=== PATIENT | female | born 1975 | race Caucasian/White ===

== ENCOUNTER → 2022-07-30 14:56 | Outpatient (CLI) | payer OTHER, SELFPAY ==
--- NOTE | ~2022-07-30 | XR_ITS ---
EXAMINATION: XR ankle RT min 3V INDICATION: Right ankle injury and pain TECHNIQUE: Four views of the right ankle are obtained. COMPARISON: None available FINDINGS: There is heterotopic ossification distal to the lateral malleolus. Adjacent soft tissue swe lling is present. The ankle mortise is intact. IMPRESSION: 1. Findings consistent with avulsion fracture of the lateral malleolus. Reviewed, dictated and finalized at location A.
== END ==
PROVIDERS: PCP Nurse Practitioner; Visit Provider Nurse Practitioner
DX: S99.911A Unspecified injury of right ankle, initial encounter (principal); R93.7 Abnormal findings on diagnostic imaging of other parts of musculoskeletal system
CPT/HCPCS: 73610

== ENCOUNTER 2024-03-27 11:31 | Outpatient (CLI) | payer OTHER, SELFPAY ==
--- NOTE | ~2024-03-27 | MR_ITS ---
MRI of the cervical spine Clinical History: Neck pain Technique: Axial T2-weighted and gradient images, and sagittal T1-weighted, T2-weighted, and STIR regina ges were acquired. Findings: There is mild reversal normal cervical lordosis. No fracture or subluxation seen. No suspic ious bone marrow signal abnormality seen. At C2-C3, there is no disc bulge or herniation. No spinal canal stenosis or cord compression. There i s bilateral facet arthropathy, right worse than left, without definite neural foraminal compromise. At C3-C4, there is minimal disc osteophyte complex, with mild canal stenosis but no frandy cord compre ssion. Possible minimal neural foraminal narrowing bilaterally, with mild facet arthropathy, right wo rse than left. At C4-C5, there is minimal disc osteophyte complex. There is minimal canal stenosis without frandy cor d compression. Probable mild bilateral neural foraminal narrowing and mild bilateral facet arthropath y. At C5-C6, there is disc osteophyte complex with mild canal stenosis but no frandy cord compression. Pr obable mild bilateral neural foraminal narrowing, with facet arthropathy bilaterally, left worse than right. At C6-C7, there is minimal disc osteophyte complex. There is mild canal stenosis without frandy cord c ompression. No definite neural foraminal narrowing. No abnormal signal seen in the spinal cord. Paravertebral soft tissues are unremarkable. Impression: Moderate degenerative spondylosis, as above. Reviewed, dictated and finalized at [facility]. Impression: Moderate degenerative spondylosis, as above.
== END 2024-03-27 11:32 ==
PROVIDERS: PCP Nurse Practitioner
DX: M47.812 Spondylosis without myelopathy or radiculopathy, cervical region (principal); M48.02 Spinal stenosis, cervical region; M50.30 Other cervical disc degeneration, unspecified cervical region; M43.12 Spondylolisthesis, cervical region
CPT/HCPCS: 72141

== ENCOUNTER 2025-05-30 00:29 | Day surgery (SDC) | payer OTHER, SELFPAY ==
[2025-05-16 11:54] VITALS: BMI 21.7
--- OUTSIDE RECORDS SUMMARY | 2025-05-30 00:32 | XMS_ITS | Encounter Summary ---
Author Organization [facility] Address [address] [place] [id number] Care Team Providers Care Superintendent Mechanical Name Role Phone Archana Enciso NP Primary Care Provider [phone] Encounter Details Date Type Department Care Team (Late st Contact Info) Description 08/08/2021 [employer] Message Enc [facility] Family Medicine - [place] [address] [place] [address] Archana Enciso NP [address] [place] [address] Test Results Social History Tobacco Use Types Packs/Day Years Used Date Smoking Tobacco: Never Smokeless Tobacco: Never Alcohol Use Standard Drinks/Week Comments Yes 0 (1 standard drink = 0.6 oz pur e alcohol) PHQ-2 Answer Date Recorded PHQ-2 Score - If the patient scores above 3, please move on to questions 3-9 2 03/16/2021 Comments No Sex and Gender Information Value Date Recorded Sex Assigned at Not on file Legal Sex Female 6:08 AM CDT Gender Identity Not on file Sexual Orientation Not on file documented as of this encounter Plan of Treatment Not on file documented as of this encounter Visit Diagnoses Not on filedocumented in this encounter Additional Health Concerns Assessment Noted Time PHQ-9 Depression Total Score: 13 03/16/ 021 8:29 AM CDT documented as of this encounter Care Teams Superintendent Mechanical Relationship Specialty Start Date End Date Archana Enciso NP [address] [place] [address] PCP - General NURSE PRACTITIONER 03/13/21 documented as of this encounter
--- OUTSIDE RECORDS SUMMARY | 2025-05-30 00:32 | XMS_ITS | Clinical Summary ---
Author Organization [facility] Address [address] [place]: Epic Prelude ADT SHAVONNE OLIVO [address] Care Team Providers Care Produce Specialist Name Role Phone Unavailable Primary Care Provider Unavailabl e Immunizations Immunization Administration Dates Next Due (COMIRNATY)(12 YR UP) COVID- 19 VACCINE, MRNA, SPIKE PROTEIN, LNP, YUNI(PF) 30 MCG/0.3 ML IM SUSP 07/18/2024 INFLUENZA VACCINE QUADRIVALENT 6 MOS UP PF IM ,08/03/2022 INFLUENZA VACCINE TRIVALENT SPLIT VIRUS, (6 MOS UP), 0.5ML (PF), IM 07/17/2024 Social History Tobacco Use Types Packs/Day Years Used Date Smoking Tobacco: Never Assessed Comments Unknown Sex and Gender Information Value Date Recorded Sex Assigned at Not on file Legal Sex Female 3:27 PM CDT Gender Identity Not on file Sexual Orientation Not on file Plan of Treatment Health Maintenance Due Date Last Done Comments DTAP/TDAP/TD VACCINES (1 - Tdap) 1996 HEPATITIS B VACCINES (1 of 3 - 19+ 3-dose series) 1996 HPV/Cotest (21-29) 1998 CERVICAL CANCER SCREENING 2007 HPV/Cotest (30-65) 2007 PAP SMEAR 2007 BREAST CANCER SCREENING 2017 COLORECTAL SCREENING 2022 Colorectal Cancer Screening 2022 FIT-DNA Q 3 years 2022 FIT/FOBT Q 1 year 2022 Flex Sig/CT Colonography Q 5 years 2022 INFLUENZA VACCINE (#1) 2025 4, 07/26/2023, 08/03/2022 COVID-19 Vaccine Completed 07/18/2024
--- OUTSIDE RECORDS SUMMARY | 2025-05-30 00:32 | XMS_ITS | Clinical Summary ---
Author Organization [facility] Address [address] [place] [id number] Care Team Providers Care Automobile Relocation Engineer Name Role Phone No, Physician Primary Care Provider [phone] Allergies No known active allergies Medications drospirenone-e. estradioL-lm.FA 3-0.02-0.451 mg (24) (4) tablet Take 1 tablet by mouth daily 11/24/2023 Active loratadine (CLARITIN) 10 mg tablet Take 1 tablet (10 mg total) by mouth daily Active tiZANidine (ZANAFLEX) 4 mg tabletIndicatio ns:Chronic neck pain Take 1 tablet (4 mg total) by mouth nightly as needed for muscle spasms 30 tablet 12/17/[address] (VOLTAREN) 75 mg EC tabletIndicatio ns:Chronic neck pain Take 1 tablet (75 mg total) by mouth 2 (two) times a day as needed for pain 60 tablet 12/17/2023 Active Active Problems No known active problems Surgical History Surgery Date Site/Laterality Comments COMBINED REDUCTION MAMMAPLASTY W/ ABDOMINOPLASTY ORAL SURGERY Medical History Medical History Date Comments Spondylolisthesis, cervical region DDD (degenerative disc disease), cervical Arthropathy of cervical facet joint Family History Medical History Relation Name Comments Cancer Father Arthritis Mother Relation Name Status Comments Father Mother Social History Tobacco Use Types Packs/Day Years Used Date Smoking Tobacco: Never Smokeless Tobacco: Never Tobacco Cessation:Counseling Given: Not Answered AUDIT-C Answer Date Recorded Q1: How often do you have a drink containing alc ohol? 2-3 times a week 12/17/2023 Q2: How many drinks containi ng alcohol do you have on a typical day when you are drinking? 1 or 2 12/17/2023 Q3: How often do you have si x or more drinks on one occasion? 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 Not on file Not on file Obstetrics History Last Filed Vital Signs Vital Sign Reading Time Taken Comments Blood Pressure - - Pulse - - Temperature - - Respiratory Rate - - Oxygen Saturation - - Inhaled Oxygen Concentration - - Weight 70.3 kg (155 lb) 03/17/2024 8:57 AM CDT Height 165.1 cm (5' 5) 03/17/2024 8:57 AM CDT Body Mass Index 25.79 03/17/2024 8:57 AM CDT Plan of Treatment Health Maintenance Due Date Last Done Comments Cervical Cancer Screening 1977 Colon Cancer Screening-Colonoscopy 1977 Depression Screening 1977 Hepatitis C Screening 1977 Hepatitis B Screening 1995 Regular Well Visit/Exam 18-64 1995 DTaP/Tdap/Td Vaccine (3 - Td or Tdap) 09/03/2022 09/03/2012, 08/20/2012 Covid-19 Vaccine ( season) 2024 08/01/2023, 09/16/2021, 02/04/2021, Additional history exists Breast Cancer Screening-Mammogram 01/21/2025 01/22/2024, 01/22/2024, 09/30/2022, Additional history exists Influenza Vaccine (#1) 2025 , 08/03/2022, 07/22/2021, Additional history exists Pneumococcal vaccine <65 Aged Out No longer eligible based on patient's age to complete this topic Insurance REPLACED BY [facility] Care Teams Automobile Relocation Engineer Relationship Specialty Start Date End Date No, Physician PCP - General 02/11/20
--- OUTSIDE RECORDS SUMMARY | 2025-05-30 00:32 | XMS_ITS | Clinical Summary ---
Author Organization [facility] Address [address] [place] [address] Care Team Providers Care Finisher Polisher Name Role Phone Archana Enciso NP Primary Care Provider [phone] Allergies No known active allergies Medications loratadine (CLARITIN) 10 MG tablet Take 10 mg by mouth daily. Active Drospiren-Eth Estrad-Levomefol 3-0.02-0.451 MG Tab Take by mouth daily. Active acyclovir (ZOVIRAX) 400 MG tablet Take 400 mg by mouth 5 (five) times daily. 07/23/2022 Active OZEMPIC, 1 MG/DOSE, 4 MG/3ML Solution Pen-injector 06/06/2022 Active Active Problems Problem Noted Date Diagnosed Date Elevated C-reactive protein (CRP) 08/29/2021 Elevated serum creatinine 08/29/2021 Overweight (BMI 25.0-29.9) 03/16/2021 Resolved Problems Problem Noted Date Diagnosed Date Resolved Date Hypertension, unspecified type 03/16/2021 08/29/2021 Immunizations Immunization Administration Dates Next Due Influenza Adult (Generic) 07/22/2021,,08/09/2017,2011 MODERNA COVID-19 (BAND [employer]INGER JUANCHO KATIE), MRNA, LNP-S, PF, 50 MCG/ 0.25 ML DOSE 09/16/2021 Tdap (Generic) 08/20/2012 Family History Medical History Relation Comments Lung Cancer Father Lung Cancer Maternal Grandfather Bronchitis Mother Hypertension Mother Relation Status Comments Father Maternal Grandfather Mother Social History Tobacco Use Types Packs/Day Years Used Date Smoking Tobacco: Never Smokeless Tobacco: Never Tobacco Cessation:Counseling Given: No Comments:na Alcohol Use Standard Drinks/Week Comments Yes 0 (1 standard drink = 0.6 oz pur e alcohol) PHQ-2 Answer Date Recorded PHQ-2 Score - If the patient scores above 3, please move on to questions 3-9 0 08/05/2022 Comments No Sex and Gender Information Value Date Recorded Sex Assigned at Not on file Legal Sex Female 6:08 AM CDT Gender Identity Not on file Sexual Orientation Not on file Last Filed Vital Signs Vital Sign Reading Time Taken Comments Blood Pressure 101/73 08/05/2022 11:04 AM CDT Pulse 93 08/05/2022 11:04 AM CDT Temperature 36.8 C (98.3 F) 07/30/2022 2:27 PM CDT Respiratory Rate 18 07/30/2022 2:27 PM CDT Oxygen Saturation 99% 07/30/2022 2:27 PM CDT Inhaled Oxygen Concentration - - Weight 57.2 kg (126 lb) 08/05/2022 11:04 AM CDT Height 165.1 cm (5' 5) 08/05/2022 11:04 AM CDT Body Mass Index 20.97 08/05/2022 11:04 AM CDT Plan of Treatment Health Maintenance Due Date Last Done Comments Cervical Cancer Screening Pap Smear (Age 30 to 64) Every 3 Years 1977 Colorectal Cancer Screening Colonoscopy (10 Years) 1977 Hepatitis B Vaccines (1 of 3 - 19+ 3-dose series) 1996 Cervical Cancer Screening Pap with HPV Testing (Age 30 to 64) Every 5 Years 2007 Cervical Cancer Screening with HPV 2007 Annual Physical 03/16/2022 03/16/2021 DTaP, Tdap and Td Vaccines (3 - Td or Tdap) 09/03/2022 09/03/2012, 08/20/2012 COVID-19 Vaccine ( season) 2024 08/01/2023, 09/16/2021, 02/04/2021, Additional history exists Mammogram Screening 09/30/2024 09/30/2022 PHQ-2 (Physician [place]) 10/20/2024 Hepatitis C Completed 03/24/2021 Meningococcal B Vaccine Aged Out No l onger eligible based on patient's age to complete this topic Meningococcal Vaccine Aged Out No danielle arlette eligible based on patient's age to complete this topic Pneumococcal Vaccine: Pediatrics (0 to 5 Years) and At-Risk Patients (6 to 49 Years) Aged Out No longer eligible based on patient's age to complete this topic RSV Immunizations Under 20 Months Aged Out No longer eligible based on patient's age to complete this topic Procedures Procedure Name Priority Date/Time Associated Diagnosis Comments MAMMOGRAM GENERIC (SCAN ORDER) Routine 09/30/2022 HEPATITIS C ANTIBODY Routine 03/24/2021 8:59 AM CDT Need for hepatitis C screening test from Last 3 Months or Most Recently Relevant to Health Maintenance Results * MAMMOGRAM (09/30/2022) Anatomical Region Laterality Modality Other us [facility] Scanned SCANNING Final Resu lt * HEPATITIS C ANTIBODY (03/24/2021 8:59 AM CDT) HEPATITIS C AB <0.1 0.0 - 0.9 s/co ratio [facility] 1 Comment: Negative: < 0.8 Indeterminate: 0.8 - 0.9 Positive: > 0.9 The CDC recommends that a positive HCV antibody result be followed up with a HCV Nucleic Acid Amplification test (501686). 03/24/2021 8:59 AM CDT 03/24/2021 Narrative [facility] - 03/25/2021 2:06 PM CDT Performed at: 01 - [facility] [address] [id number] Classroom Teacher: Oumar Enciso PhD, Phone: [phone] us Archana Enciso [employer] Final Res ult [facility] [address] [place] [address] [facility] 1 from Last 3 Months or Most Recently Relevant to Health Maintenance Insurance [address] [place] [id number] [employer] Care Teams Finisher Polisher Relationship Specialty Start Date End Date Archana Enciso NP [address] [place] [address] PCP - General NURSE PRACTITIONER 03/13/21
[2025-05-30 09:57] VITALS: BP 125/97; PULSE 108; RESP 18; TEMP 36.3; O2SAT 100; BMI 21.2
[2025-05-30] MEDS: LACTATED RINGERS 1,000 ML 150 ML IV CONT (10:07)
[2025-05-30 10:10] LABS: BEDSIDEPREGUCG Negative (Negative)
--- NOTE | 2025-05-30 10:20 | WPDANESEPPF ---
Anes - Initial Pre Proc Eval Procedure: Operation Date: 05/30/25 10:30 Proposed Procedures p Screening Colonoscopy - Lazarus Day DO Date/Time: 05/30/25 10:20 Surgeon: Lazarus Day DO Pre Op Diagnosis: Neoplasm screening Patient Data Age: 49 Gender: F Height: 1.65 m Weight: 57.7 kg Last Vital Signs Temp 36.3 C L 05/30/25 09:57 Pulse 108 H 05/30/25 09:57 Resp 18 05/30/25 09:57 BP 125/97 H 05/30/25 09:57 Pulse Ox 100 05/30/25 09:57 O2 Del Method Room Air 05/30/25 09:57 Allergies Allergy/AdvReac Type Severity Reaction Status Date / Time No Known Allergies Allergy Verified 05/30/25 09:56 Home Medications ?Medication ?Instructions ?Recorded ?Confirmed ?Type drospiren-e.estrad-l.mefol 3 1 tablet PO DAILY #112 tabs 03/31/25 05/30/25 Rx mg-0.02 mg-0.451 mg(24)/0.451 mg(4)tablet semaglutide (weight loss) 0.5 0.5 mg subcut WEEKLY weightloss 05/16/25 05/16/25 History mg/0.5 mL subcutaneous pen injector Laboratory Tests 05/30/25 09:57 POC Urine HCG, Qual Negative (Negative) Patient hx anesthesia problems: none Family hx anesthesia problems: none Results Review: All pre-operative results and documents have been reviewed as part of the pre-operative evaluation. [facility] Past Medical History Medical History Seizures as child Allergies Surgical History Surgical History H/O bilateral breast reduction surgery [place] teeth removed Family History Family History (Updated 03/29/25 @ 14:40 by Marisa Berrios CMA) Mother Diabetes mellitus Hypertension Grandparent Hypertension Lung cancer Sibling Liver cancer Cervical cancer Father Bone cancer Lung cancer Social History Social History (Updated 03/31/25 @ 07:58 by Bethanie Farnsworth CMA) Smoking status: Never smoker Alcohol intake: current Drinks per week: 2 Alcohol use details: socially Substance use: never Substance use type: does not use Do You Feel Safe in your Home?: Yes Lack of Transportation: No Lack of Food: Never True Current Housing: I Have Housing Concerned About Future Housing: No Difficulty Paying Gas/Electric Bills: No Difficulty Paying for Meds: No Currently Unemployed: No Difficulty w/ Childcare or Family Care: No Living arrangements: with family Additional living arrangements comments: Occupation/Education: occupation Gender identity (if verbalized by the patient): Female Sexual Orientation (if Verbalized by the Patient): Straight or Heterosexual Spiritual care concerns: No Anes - Eval Final PreProcedure Day of Procedure 05/30/25 10:20 Patient weight: normal Heart: regular rate and rhythm Lungs: clear to auscultation and normal air movement Airway: Mallampati scale class II Neurological: alert and oriented Last oral intake: >/= 8 hours ASA classification: II Emergent: no Anesthetic plan: proceed Anesthesia type and monitoring: general GIVS and standard monitoring Results Review: All pre-operative results and documents have been reviewed as part of the pre-operative evaluation. Informed Consent: The patient's anesthetic plan and its attendant risks and benefits were discussed with the patient/family/POA. Questions were solicited and answers provided to the satisfaction of the patient/family/POA.
--- NOTE | 2025-05-30 11:23 | PM.IMHP ---
H&P: HPI History of Present Illness Date/Time: 05/30/25 11:23 Chief Complaint: screening for colorectal cancer Narrative: this is a 49-year-old woman who presents for colonoscopy. She denies any hematochezia or melena. She denies any changes in bowel habits. She denies family history of colon cancer. Review of Systems Review of Systems: All systems reviewed & are unremarkable except as noted in HPI and below Constitutional: Constitutional: Denies chills, Denies fever(s), Denies headache(s) and Denies weight loss Eyes: Eyes: Denies change in vision ENT: Denies dizziness, Denies headache(s), Denies neck mass and Denies throat swelling Cardiovascular: Cardiovascular: Denies chest pain, Denies lightheadedness and Denies dyspnea Respiratory: Respiratory: Denies cough, Denies dyspnea and Denies wheezing Gastrointestinal: Gastrointestinal: Denies abdominal pain, Denies change in bowel habits, Denies nausea and Denies vomiting Genitourinary: Genitourinary: Denies hematuria and Denies dysuria Musculoskeletal: Musculoskeletal: Reports as per HPI Integumentary/Breasts: Skin/Breast: Reports as per HPI Neurologic: Denies dizziness and Denies headache(s) Allergic/Immunologic: Allergic/Immunologic: Denies throat swelling and Denies wheezing PMFSH Past Medical History Medical History Seizures as child Allergies Surgical History Surgical History H/O bilateral breast reduction surgery [place] teeth removed Family History Family History (Updated 03/29/25 @ 14:40 by Marisa Berrios CMA) Mother Diabetes mellitus Hypertension Grandparent Hypertension Lung cancer Sibling Liver cancer Cervical cancer Father Bone cancer Lung cancer Social History Social History (Updated 03/31/25 @ 07:58 by Bethanie Farnsworth CMA) Smoking status: Never smoker Alcohol intake: current Drinks per week: 2 Alcohol use details: socially Substance use: never Substance use type: does not use Do You Feel Safe in your Home?: Yes Lack of Transportation: No Lack of Food: Never True Current Housing: I Have Housing Concerned About Future Housing: No Difficulty Paying Gas/Electric Bills: No Difficulty Paying for Meds: No Currently Unemployed: No Difficulty w/ Childcare or Family Care: No Living arrangements: with family Additional living arrangements comments: Occupation/Education: occupation Gender identity (if verbalized by the patient): Female Sexual Orientation (if Verbalized by the Patient): Straight or Heterosexual Spiritual care concerns: No Meds Home Medications and Allergies Home Medications ?Medication ?Instructions ?Recorded ?Confirmed ?Type drospiren-e.estrad-l.mefol 3 1 tablet PO DAILY #112 tabs 03/31/25 05/30/25 Rx mg-0.02 mg-0.451 mg(24)/0.451 mg(4)tablet semaglutide (weight loss) 0.5 0.5 mg subcut WEEKLY weightloss 05/16/25 05/16/25 History mg/0.5 mL subcutaneous pen injector Allergies Allergy/AdvReac Type Severity Reaction Status Date / Time No Known Allergies Allergy Verified 05/30/25 09:56 Vital Signs Vital Signs - 24 hr 05/30/25 09:57 Temperature 97.3 F L Pulse Rate 108 H Respiratory Rate 18 Blood Pressure 125/97 H Pulse Oximetry 100 Oxygen Delivery Room Air Exam Const: General: no acute distress and alert Orientation/consciousness: patient oriented x3 HENMT: Head: normocephalic and atraumatic Ears: hearing grossly normal bilaterally Face/Nose/Sinus: Normal nares present Mouth: Yes Normal oral and palatal mucosa present Eyes: Periorbital: periorbital findings normal Sclera: sclerae normal EOM: EOMs intact bilaterally Neck: Neck: normal visual inspection, no lymphadenopathy and trachea midline Chest: Chest palpation & inspection: normal inspection of the chest Resp: Effort & Inspection: normal respiratory effort Auscultation: clear to auscultation bilaterally Cardio: Jugular venous distension: no JVD Rate: regular rate Rhythm: regular rhythm Heart sounds: S1 normal heart sound present and S2 normal heart sound present Peripheral pulses: Peripheral pulses 2+ throughout GI: Inspection: normal to inspection GI Palp: Yes Soft to palpation, No Tenderness to palpation present (GI), No Guarding due to palpation present (GI) and No Rebound tenderness present Percussion: Yes normal to percussion Auscultation: normal bowel sounds : General: Yes no CVA tenderness Back/Spine/Pelvis: Back: no CVA tenderness Neuro: General: patient oriented x3, no focal motor deficits and CN's II-XI intact bilaterally Cognition (Neuro): normal cognition Speech: normal speech Motor exam (neuro): 5/5 motor strength present throughout Extrem: General: capillary refill normal and no clubbing, cyanosis or edema Assessment and Plan Assessment and plan (1) Colon cancer screening: Code(s): Z12.11 - Encounter for screening for malignant neoplasm of colon Status: Acute Assessment and Plan: I have recommended colonoscopy. I have discussed the procedure, risks, benefits, and alternatives. Questions were answered. Patient is agreeable to proceed.
[2025-05-30 11:48] VITALS: BP 109/70; PULSE 105; RESP 22; O2SAT 100
[2025-05-30 11:59] VITALS: BP 123/73; PULSE 94; RESP 24; O2SAT 100
[2025-05-30 12:09] VITALS: BP 116/71; PULSE 84; RESP 18; O2SAT 100
== END 2025-05-30 12:19 | disposition home or self-care (01) ==
PROVIDERS: Anesthesiology; PCP Nurse Practitioner; Visit Provider Surgery
PROC: 0DJD8ZZ Inspection of Lower Intestinal Tract, Via Natural or Artificial Opening Endoscopic (ICD-10-PCS; CPT 45378; principal; 2025-05-30 10:30)
DX: Z12.11 Encounter for screening for malignant neoplasm of colon (principal); Z79.85 Long-term (current) use of injectable non-insulin antidiabetic drugs; Z98.890 Other specified postprocedural states; Z86.69 Personal history of other diseases of the nervous system and sense organs; Z80.1 Family history of malignant neoplasm of trachea, bronchus and lung; Z80.0 Family history of malignant neoplasm of digestive organs; Z80.49 Family history of malignant neoplasm of other genital organs; Z80.8 Family history of malignant neoplasm of other organs or systems
CPT/HCPCS: 45378; J2003; J2704; J7120

== ENCOUNTER 2025-06-13 14:14 | Outpatient (CLI) | payer OTHER, SELFPAY ==
--- NOTE | ~2025-06-13 | MM_ITS ---
EXAMINATION: MM screening pam BI w sharlene HISTORY: Screening TECHNIQUE: Craniocaudal and mediolateral oblique 3-D tomosynthesis images were obtained and synthetic 2-D images were generated. CAD analysis was submitted and interpreted. COMPARISON: None available. BREAST PARENCHYMAL COMPOSITION: There are scattered areas of fibroglandular density. FINDINGS: There is no evidence of suspicious mass, calcification, or architectural distortion to suggest malignancy in either breast. Scattered benign-appearing calcifications are present. IMPRESSION: 1. No mammographic evidence of malignancy. 2. Recommend routine screening mammography in one year. BI-RADS Category 2: Benign finding(s). Reviewed, dictated and finalized at location B.
--- OUTSIDE RECORDS SUMMARY | 2025-06-13 14:20 | XMS_ITS | Clinical Summary ---
Author Organization [facility] Address [address] [place]: Epic Prelude ADT SHAVONNE OLIVO [address] Care Team Providers Care Armature Bander Name Role Phone Unavailable Primary Care Provider [...]
--- OUTSIDE RECORDS SUMMARY | 2025-06-13 14:20 | XMS_ITS | Clinical Summary ---
Author Organization [facility] Address [address] [place] [id number] Care Team Providers Care Nuclear Physics Teacher Name Role Phone No, Physician Primary Care Provider [phone] Allergies No known active allergies Medications drospirenone-e. 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
--- OUTSIDE RECORDS SUMMARY | 2025-06-13 14:20 | XMS_ITS | Clinical Summary ---
Author Organization [facility] Address [facility] [place] [address] Care Team Providers Care Director Of Business Continuity Name Role Phone Archana Enciso NP Primary Care Provider [phone] Allergies No known active allergies Medications loratadine [...] Resolved Date Hypertension, unspecified type 03/16/2021 08/29/2021 Encounters Date Type Department Care Team Description 05/30/2025 Scan [facility] Scanned, [facility] Colonoscopy Report (SCAN) from Last 3 Months Immunizations Immunization Administration Dates Next Due Influenza Adult (Generic) 07/22/2021,,08/09/2017,2011 [facility] 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 JUANCHO KATIE), MRNA, LNP-S, PF, 50 MCG/ [...] 30 to 64) Every 3 Years 1977 Hepatitis B Vaccines (1 of 3 [...] exists Mammogram Screening 09/30/2024 09/30/2022 PHQ-2 (Physician [place]) 10/20/2024 Colorectal Cancer Screening Colonoscopy (10 Years) 05/30/2035 05/30/2025 Hepatitis C Completed 03/24/2021 Meningococcal B Vaccine [...] Procedure Name Priority Date/Time Associated Diagnosis Comments COLONOSCOPY GENERIC (SCAN ORDER) 05/30/2025 MAMMOGRAM GENERIC (SCAN ORDER) Routine 09/30/2022 HEPATITIS C ANTIBODY Routine 03/24/2021 8:59 AM CDT Need for hepatitis C screening test from Last 3 Months or Most Recently Relevant to Health Maintenance Results * COLONOSCOPY GENERIC (SCAN ORDER) (05/30/2025) 05/30/2025 [facility] [employer] [facility] Scanned SCANNING Final Resu lt * MAMMOGRAM (09/30/2022) Anatomical Region Laterality Modality Other [facility] [employer] [facility] Scanned SCANNING Final Resu lt * HEPATITIS C ANTIBODY (03/24/2021 8:59 AM CDT) HEPATITIS C AB <0.1 0.0 - 0.9 s/co ratio [facility] 1 Comment: Negative: < 0.8 Indeterminate: 0.8 - 0.9 Positive: > 0.9 The CDC recommends that a positive HCV antibody result be followed up with a HCV Nucleic Acid Amplification test (335133). 03/24/2021 8:59 AM CDT 03/24/2021 Narrative [facility] - 03/25/2021 2:06 PM CDT Performed at: 01 - [facility] [address] [id number] Automotive Sales Associate: Oumar Enciso PhD, Phone: [phone] Archana Enciso [facility] Final Res ult [facility] [address] [place] [address] [facility] 1 from Last 3 Months or Most Recently Relevant to Health Maintenance Insurance [employer] Care Teams Director Of Business Continuity Relationship Specialty Start Date End Date Archana Enciso NP [address] [place] [address] PCP - General NURSE PRACTITIONER 03/13/21
--- OUTSIDE RECORDS SUMMARY | 2025-06-13 14:20 | XMS_ITS | Encounter Summary ---
Author Organization [facility] Address [address] [place] [id number] Care Team Providers Care Wholesale Diamond Broker Name Role Phone Archana Enciso NP Primary Care Provider [phone] Encounter Details Date Type Department Care Team (Late st Contact Info) Description 08/08/2021 [employer] Message Enc [facility] Family Medicine - [place] [address] [place] [address] Archana Enciso NP [address] [place] [address] Test Results Social History Tobacco Use Types [...] documented as of this encounter Care Teams Wholesale Diamond Broker Relationship Specialty Start Date End Date Archana Enciso NP [address] [place] [address] PCP - General NURSE PRACTITIONER 03/13/21 documented as of this encounter
== END 2025-06-13 14:15 | disposition home or self-care (01) ==
LOC: CHSIMG 14:15
PROVIDERS: PCP Nurse Practitioner; Visit Provider Obstetrics & Gynecology
DX: Z12.31 Encounter for screening mammogram for malignant neoplasm of breast (principal)
CPT/HCPCS: 77063; 77067